=== PATIENT | female | born 2000 | race African-American/Black ===

== ENCOUNTER 2022-02-03 12:17 | Observation (INO) ==
[2022-02-03 13:14] LABS: Rapid Strep Molecular Negative (Negative)
[2022-02-03 14:15] LABS: Urine Appearance Clear; Urine Bilirubin Negative (Negative); Urine Blood Negative (Negative); Urine Color Yellow; Urine Glucose Negative (Negative); Urine Ketones Negative (Negative); Urine Protein Negative (Negative); Urine Specific Gravity <1.005 (1.005-1.030); Urine Urobilinogen 0.2 (Negative) (Negative)
[2022-02-03 14:16] LABS: Urine Nitrite Negative (Negative)
[2022-02-03 18:10] LABS: Albumin 4.1 g/dL (3.2-5.2); Calcium 8.8 mg/dL (8.6-10.3); Potassium 3.9 mmol/L (3.5-5.0); Total Bilirubin 0.4 mg/dL (0.2-1.0)
[2022-02-03 18:16] LABS: C Reactive Protein 2.85 mg/L (<8.01); Total Protein 8.1 g/dL (6.4-8.9); eGFR CKD-EPI 119.5 (>60)
[2022-02-03 18:19] LABS: Hematocrit 33 % (35-47); Hemoglobin 10.5 g/dL (12.0-16.0); Mean Corpuscular HGB Conc 32 g/dL (31-36); Mean Corpuscular Hemoglobin 25 pg (27-31); Mean Corpuscular Volume 78 fL (80-97); Mean Platelet Volume 9.6 fL (7.4-10.4); Platelet Count 199 10^3/uL (150-450); Red Blood Count 4.29 10^6 /uL (3.70-4.87); Red Cell Distribution Width 14 % (10-15); White Blood Count 1.5 10^3/uL (3.5-10.8)
[2022-02-03 18:28] LABS: ABS Neutrophils 0.8 10^3/ul (1.5-7.7)
[2022-02-03] MEDS ORDERED: Cefepime 1 GM in Dextrose 1 GM/50 ML BAG IV ONE (18:31)
[2022-02-03 19:03] LABS: ABS Lymphocytes 0.6 10^3/ul (1.0-4.8); ABS Monocytes 0.1 10^3/ul (0-0.8); Eosinophil % 0.3 %; Nucleated Red Blood Cells % 0.3
[2022-02-03 19:22] LABS: Anisocytosis 1+; Microcytosis 1+
[2022-02-03] MEDS ORDERED: NS 0.9% 1000 ml BAG 1,000 ML IV SCH (20:30)
[2022-02-03] MEDS ORDERED: Aspirin EC 81 mg TAB.EC (enteric coated) PO ONE (22:00)
[2022-02-04] MEDS: cefTAZidime (*) 2 GM in NS 0.9% 100 ml BAG 100 ML IVPB SCH ×2 (02:43→10:04)
[2022-02-04] MEDS ORDERED: HYDROCORTISONE VALERATE 0.2% TOPICAL PRN (09:00)
[2022-02-04] MEDS ORDERED: CLINDAMYCIN 1% TOPICAL SCH (09:00)
[2022-02-04] MEDS ORDERED: Cholecalciferol (VIT D3) 1,000 unit TAB PO SCH (09:00)
[2022-02-04 12:09] LABS: Hematocrit 31 % (35-47); Mean Corpuscular HGB Conc 32 g/dL (31-36); Mean Corpuscular Hemoglobin 25 pg (27-31); Mean Corpuscular Volume 78 fL (80-97); Mean Platelet Volume 8.5 fL (7.4-10.4); Platelet Count 193 10^3/uL (150-450); Red Blood Count 3.98 10^6 /uL (3.70-4.87); Red Cell Distribution Width 14 % (10-15); White Blood Count 1.3 10^3/uL (3.5-10.8)
[2022-02-04 12:19] LABS: ABS Lymphocytes 0.4 10^3/ul (1.0-4.8); ABS Monocytes 0.1 10^3/ul (0-0.8); ABS Neutrophils 0.7 10^3/ul (1.5-7.7); Eosinophil % 0.4 %; Lymphocyte % 33.1 %; Nucleated Red Blood Cells % 0.2
[2022-02-04 13:02] LABS: HCG Pregnancy < 0.60 mIU/mL
[2022-02-04 13:09] LABS: CRP High Sensitivity 2.56 mg/L (<2.00)
[2022-02-04 13:40] LABS: Erythrocyte Sed Rate 42 mm/Hr (0-19)
[2022-02-04 15:22] VITALS: BP 112/63
[2022-02-06 10:53] LABS: Complement C1q 16 mg/dL (12 - 22)
[2022-02-06 11:22] LABS: Complement C3 52 mg/dL (75 - 175)
[2022-02-06 14:47] LABS: Complement C8 35 U/mL (33 - 58); Complement C9 41 U/mL (37 - 61)
[2022-02-06 15:23] LABS: IgG Immunoblot Negative (Negative); IgM Immunoblot Negative (Negative)
[2022-02-06 16:29] LABS: Complement CH50 18 U/mL (30-75)
[2022-02-11 17:51] LABS: Anaplasma phagocytophilum Negative (Negative); B. miyamotoi PCR, B Negative (Negative); Babesia divergens/MO-1 Negative (Negative); Babesia ducani Negative (Negative); Ehrlichia chaffeensis Negative (Negative); Ehrlichia ewingii/canis Negative (Negative); Ehrlichia muris eauclairensis Negative (Negative)
== END 2022-02-04 16:37 | disposition home or self-care (01) ==
LOC: EDHOLD 12:17 → ED 12:17 → SUATTDRO 19:30 → EDHOLD 23:00 → MED 23:04
PROVIDERS: ADMIT Internal Medicine; ATTEND Internal Medicine